=== PATIENT | female | born 1965 | race Caucasian/White ===

== ENCOUNTER 2018-09-02 08:52 | Outpatient (CLI) | payer BC | END 2018-09-02 08:53 | disposition home or self-care (01) | LOC: BICMAMMO 08:52 | PROVIDERS: ATTEND Obstetrics & Gynecology | DX: Z12.31 Encounter for screening mammogram for malignant neoplasm of breast (principal); Z80.3 Family history of malignant neoplasm of breast | CPT/HCPCS: 77063; 77067 ==

== ENCOUNTER 2022-05-12 10:27 | Outpatient (CLI) | payer BC | END 2022-05-12 10:28 | disposition home or self-care (01) | LOC: BICRAD 10:27 | PROVIDERS: ATTEND Nurse Practitioner Family | DX: M79.644 Pain in right finger(s) (principal) ==

== ENCOUNTER 2023-05-11 12:43 | Outpatient (CLI) | payer BC | END 2023-05-11 12:44 | disposition home or self-care (01) | LOC: ULT 12:43 | PROVIDERS: ATTEND Physician Assistant | DX: R06.02 Shortness of breath (principal); I08.1 Rheumatic disorders of both mitral and tricuspid valves | CPT/HCPCS: 93306 ==

== ENCOUNTER 2023-08-02 09:42 | Outpatient (CLI) | payer BC | END 2023-08-02 09:43 | disposition home or self-care (01) | LOC: RAD 09:42 | PROVIDERS: ATTEND Internal Medicine Critical Care Medicine | DX: R06.00 Dyspnea, unspecified (principal) | CPT/HCPCS: 71046 ==

== ENCOUNTER 2023-09-12 08:35 | Outpatient (CLI) | payer BC | END 2023-09-12 08:36 | disposition home or self-care (01) | LOC: RAD 08:35 | PROVIDERS: ATTEND Internal Medicine Critical Care Medicine | DX: R06.00 Dyspnea, unspecified (principal) | CPT/HCPCS: 71046 ==

== ENCOUNTER 2024-11-11 09:28 | Outpatient (CLI) | payer BC ==
[2024-11-11] MEDS ORDERED: Magnevist 469MG/ML 20 ML VIAL ONE (11:55)
== END 2024-11-11 09:29 | disposition home or self-care (01) ==
LOC: MRI 09:28
PROVIDERS: ATTEND Surgery
DX: D32.9 Benign neoplasm of meninges, unspecified (principal)
CPT/HCPCS: 36415; 70553; 76376; 82565